=== PATIENT | female | born 1975 | race Caucasian/White ===

== ENCOUNTER 2024-08-28 08:28 | Outpatient (CLI) | payer BC, SELFPAY ==
[2024-08-28 08:56] LABS: Hematocrit 40.1 % (37.0-47.0); Hemoglobin 13.8 g/dL (12.0-15.0)
== END 2024-08-28 08:29 | disposition home or self-care (01) ==
LOC: ANHLAB 08:30
PROVIDERS: Visit Provider Anesthesiology
DX: Z01.818 Encounter for other preprocedural examination (principal); K42.9 Umbilical hernia without obstruction or gangrene; Z41.1 Encounter for cosmetic surgery
CPT/HCPCS: 36415; 85014; 85018; 93005

== ENCOUNTER 2024-08-31 00:54 | Day surgery (SDC) | payer OTHER, BC, SELFPAY ==
[2024-08-23 11:44] VITALS: BMI 25.5
--- NOTE | 2024-08-23 11:51 | PC.NURSE ---
Report to the Outpatient Waiting Room, entrance under the green pavilion located off [facility], at time _0630_ on date _[id number]_. Planned Procedure Time: _0830_.? Time changes happen often and if your time is changed the preop area will call you the afternoon before. - You and your visitor will be asked to self-screen and do not enter if you have any COVID symptoms. Please call surgeon if you need to reschedule. - A mask is optional within the hospital at this time. Patients may have clear liquids (water, carbonated beverages, clear teas, apple juice) until 3 hours prior to surgery with a maximum of 20 ounces. - No food from midnight until time of surgery and no smoking, or chewing tobacco (or any form of nicotine). No chewing gum, candy or mints. Take only the following medications with a SIP of water on the morning of surgery: ___None____ DO NOT STOP ANY OF YOUR OTHER PRESCRIPTION MEDICATIONS PRIOR TO SURGERY EXCEPT THE FOLLOWING Hold all vitamins and supplements for 3 days per anesthesiologist. Medications to discontinue per physician Date to take last dose Please no make-up, nail ugandan, hairspray, perfume, deodorant, or body powder the day of surgery.? No jewelry (including any body piercings) or valuables the day of surgery, leave them at home.? Please take a shower or bath the night before, or the morning of, surgery with an antibacterial soap.? Wear comfortable, loose fitting clothing. - Jewelry must be removed prior to entering the operating room.? Rings and piercings that are not removed may be cut off. - The hospital will not accept responsibility for valuables.? - Please leave all valuables, including medications, at home the day of surgery. If you are going home after surgery, a licensed maintenance truck driver must drive you home.? - NO public transportation without another adult if you receive anesthesia. - We recommend that an adult stay with you for 24 hours following discharge. - We also recommend that you do not drive, make important decision, drink alcoholic beverages, or take any drugs that were not prescribed by your health care provider for at least 24 hours after your discharge time. Follow any additional instructions given to you from your surgeon. Telephone instructions given to _Renu__and asked if any additional questions and then verbalized understanding. Patient advised to call surgeon office or pre surgery nurse liaison [phone] if any additional questions.
[2024-08-31] VITALS (14 sets, daily range): BP systolic 98–124; BP diastolic 67–88; PULSE 75–96; RESP 12–21; TEMP 36.4–37.1; O2SAT 96–100; BMI 26.4
[2024-08-31 06:41] LABS: Urine Cotinine NEGATIVE
--- NOTE | 2024-08-31 06:56 | WPDHPUPDATE1 ---
History and Physical Update Update Date/Time: 08/31/24 06:56 History and Physical has been reviewed, including an updated exam of the patient. There are NO changes in the patient's condition. Risks, benefits, and alternatives have been discussed and questions answered. Patient agrees to proceed with procedure.
--- NOTE | 2024-08-31 06:57 | W.PM.PROC2 ---
Procedure Note - Detailed Date of Procedure 08/31/24 Pre-op Diagnosis skin laxity, umbilical hernia Post-op Diagnosis Same Procedure Performed Progressive tension abdominoplasty with suction lipectomy Surgeon Carlito Kemp MD Anesthesia General Findings Tissue removed: 924 grams Lipoaspirate: 2,000 cc Description of Procedure They are here today for the above procedures. Previously and again today the risks, benefits, alternatives were discussed in extensive detail. I wanted them to be very realistic about the risks involved as well as expectations. We discussed aftercare and what to monitor for. I was very upfront about the risks of wound breakdown leading to loss of skin, open wounds, and need for additional procedures with permanent abdominal deformity. We discussed DVT/PE risks and management. Made sure answered all of their questions to their satisfaction today and consent was obtained. They were marked in the preoperative holding area with their verification. The patient was taken to the operating room. Anesthesia was provided by anesthesiology. A Tracy catheter was started. Posterior Placed prone on the operating room table with care taken to protect from injury. Prepped and draped in a standard sterile fashion. A surgical time-out was taken. Stab incisions were made and tumescent solution was infiltrated. Once adequate time was allowed for hemostasis a 5mm basket and 4mm vijay cannula were utilized to complete suction lipectomy based on S.A.F.E. technique in multiple planes and passes. Suction lipectomy continued to result based on pre-operative planning, intra-operative observation, and rolling pinch test which were in full agreement. Anterior Patient was then placed supine with care taken to protect from injury. I placed the patient in a flexed position to verify the upper and lower markings would reach. I then placed supine. A thorough abdominal examination was completed. Stab incisions were made and tumescent solution infiltrated. Stab incisions were made and tumescent solution was infiltrated. Once adequate time was allowed for hemostasis a 5mm basket and 4mm vijay cannula were utilized to complete suction lipectomy based on S.A.F.E. technique in multiple planes and passes. Suction lipectomy continued to result based on pre-operative planning, intra-operative observation, and rolling pinch test which were in full agreement. A 10 blade was used to make the upper incision. I continued dissection down to the level of fascia. Elevated just what was necessary for repair of the diastasis. I then again flexed the bed to verify the upper skin flap would reach the lower markings without tension. Once verified I placed her supine once again and a 10 blade used to make the lower incision. I elevated up to level the umbilicus and left the umbilicus intact on a well-vascularized stalk. The intervening tissue was removed. Dr. Bradshaw entered at this point to complete the umbilical hernia repair. See his note for details. A 2 mm blunt cannula with 0.5% bupivacaine was injected deep to the fascia bilaterally. DIASTASIS I plicated the diastasis recti using 0 PDO Stratafix barbed suture. This was in 2 separate layers using 2 separate sutures as well. OBLIQUE REPAIR I also repaired lateral to the rectus using two layers of 0 PDO Stratafix. TRANSVERSE FASCIA REPAIR After the patient was flexed (below) plicated the fascia with 0 PDO Stratafix in two separate layers. The patient was flexed and starting from superior to inferior began plication using 2-0 Vicryl to obliterate all space in a standard progressive tension fashion. At the umbilicus I marked out the location of the skin and inset this with 3-0 Monocryl and 4-0 Vicryl. I continued the remainder of the plication using 2-0 Vicryl until I reached my lower planned scar line. I trimmed any excess skin of the upper flap making sure this was a tension-free closure. 15 Jamie drain was placed. I then approximated using a 3 point suture with 2-0 Vicryl followed by 2-0 PDO Stratafix, 3-0 Stratafix ,running subcuticular 4-0 Monocryl, and tissue glue. Fluffs and an abdominal binder were placed. The patient was transferred to the bed in a flexed position. Awoken and taken to the PACU without difficulty. All instrument and sponge counts were correct at the end of the case. Estimated Blood Loss 50 Drains Yes (15 Jamie) Packing No Pathology None sent Complications No immediate complications Condition Stable Disposition PACU
[2024-08-31] MEDS: ACETAMINOPHEN 500 MG TABLET 1000 MG PO (07:00)
--- NOTE | 2024-08-31 07:16 | WPDANESEPPF ---
Anes - Initial Pre Proc Eval Procedure: Operation Date: 08/31/24 08:30 Proposed Procedures p Abdominoplasty with Liposuction - Carlito Kemp MD s Open Umbilical Hernia Repair Without Mesh - Yuri Bradshaw MD Date/Time: 08/31/24 07:16 Surgeon: Carlito Kemp MD Pre Op Diagnosis: skin laxity, umbilical hernia Patient Data Age: 49 Gender: F Height: 1.68 m Weight: 71.8 kg Allergies Allergy/AdvReac Type Severity Reaction Status Date / Time No Known Allergies Allergy Verified 08/23/24 11:44 Home Medications ?Medication ?Instructions ?Recorded ?Confirmed ?Type No Home Medications 05/12/24 08/23/24 History Laboratory Tests 08/31/24 06:15 Cotinine Negative Patient hx anesthesia problems: none Family hx anesthesia problems: none Results Review: All pre-operative results and documents have been reviewed as part of the pre-operative evaluation. [facility] Surgical History Surgical History (Updated 08/31/24 @ 07:17 by Adrián Dwyer MD) S/P breast lumpectomy Family History Family History Father Cancer Social History Social History Smoking status: Never smoker Alcohol intake: current Do You Feel Safe in your Home?: Yes Lack of Transportation: No Lack of Food: Never True Current Housing: I Have Housing Concerned About Future Housing: No Difficulty Paying Gas/Electric Bills: No Difficulty Paying for Meds: No Currently Unemployed: No Education: High School Diploma/GED Difficulty w/ Childcare or Family Care: No Living arrangements: with family Spiritual care concerns: No Anes - Eval Final PreProcedure Day of Procedure 08/31/24 07:16 Patient weight: normal Heart: regular rate and rhythm Lungs: clear to auscultation Airway: Mallampati scale class II Neurological: alert and oriented Last oral intake: >/= 8 hours ASA classification: II Emergent: no Anesthetic plan: proceed Anesthesia type and monitoring: general ETT and standard monitoring Results Review: All pre-operative results and documents have been reviewed as part of the pre-operative evaluation. Informed Consent: The patient's anesthetic plan and its attendant risks and benefits were discussed with the patient/family/POA. Questions were solicited and answers provided to the satisfaction of the patient/family/POA.
[2024-08-31] MEDS: KETOROLAC 15 MG/ML VIAL (*BKC) IV PUSH (07:20)
[2024-08-31] MEDS: TRANEXAMIC ACID 1,000MG/ISO100 1,000 MG/100 ML BAG 200 MG IVPB (07:30)
[2024-08-31] MEDS: SCOPOLAMINE 1 MG PATCH 1 PATCH TRANSDERM (08:09)
[2024-08-31] MEDS: LACTATED RINGERS 1,000 ML 30 ML IV CONT ×3 (08:09→13:49)
[2024-08-31 08:17] LABS: BEDSIDEPREGUCG Negative (Negative)
--- NOTE | 2024-08-31 08:27 | PM.IMHP ---
H&P: HPI History of Present Illness Date/Time: 08/31/24 08:27 Chief Complaint: Umbilical hernia Narrative: Renu is a 49 y/o female who presents to the office today at the request of Carlito Kemp MD for an evaluation of an abdominal bulge. Patient had consultation with Dr. Kemp for an abdominoplasty, which is scheduled for 08/31/24, when an umbilical hernia was noted. Patient would like to coordinate this repair with her abdominoplasty. She reports mild discomfort with activity. Patient tolerates a normal diet and has regular BM's. Review of Systems Review of Systems: The remainder of the review of systems to include constitutional, HEENT, cardiovascular, respiratory, GI, , integumentary, musculoskeletal, endocrine, immunologic, hematologic, psychiatric, and neurologic are all negative except for which is mentioned above in the HPI. [facility] Surgical History Surgical History S/P breast lumpectomy Family History Family History Father Cancer Social History Social History Smoking status: Never smoker Alcohol intake: current Do You Feel Safe in your Home?: Yes Lack of Transportation: No Lack of Food: Never True Current Housing: I Have Housing Concerned About Future Housing: No Difficulty Paying Gas/Electric Bills: No Difficulty Paying for Meds: No Currently Unemployed: No Education: High School Diploma/GED Difficulty w/ Childcare or Family Care: No Living arrangements: with family Spiritual care concerns: No Meds Home Medications and Allergies Home Medications ?Medication ?Instructions ?Recorded ?Confirmed ?Type No Home Medications 05/12/24 08/23/24 History Allergies Allergy/AdvReac Type Severity Reaction Status Date / Time No Known Allergies Allergy Verified 08/31/24 07:59 Vital Signs Vital Signs - 24 hr 08/31/24 08:11 Temperature 36.4 C Pulse Rate 76 Blood Pressure 114/87 Pulse Oximetry 100 Oxygen Delivery Room Air Exam Const: General: comfortable and no acute distress HENMT: Ears: TM's normal bilaterally Face/Nose/Sinus: Normal nares present Mouth: Yes moist mucous membranes Eyes: General: appearance normal, both eyes and all related structures Sclera: sclerae normal Pupils: Equal, round and reactive pupils present Neck: Neck: supple and no JVD Resp: Effort & Inspection: normal respiratory effort Auscultation: clear to auscultation bilaterally Cardio: Rate: regular rate Rhythm: regular rhythm GI: Other: 1cm defect, umbilical hernia. Reducible, no significant diastasis. Skin: General skin exam: normal color Neuro: General: gait normal Speech: normal speech Extrem: General: normal to inspection Psych: Mental Status: mental status grossly normal Affect: normal affect Assessment and Plan Assessment and plan (1) Umbilical hernia: Code(s): K42.9 - Umbilical hernia without obstruction or gangrene Status: Acute Assessment and Plan: I have reviewed office notes from Carlito Kemp MD prior to patient visit. Based on clinical exam, I have recommended an open umbilical hernia repair, no mesh.. This surgery will be coordinated with patient abdominoplasty. The procedure was discussed in detail including the use of mesh, general description, and usual course of recovery. Risks of recurrence, infection, postop bleeding, prolonged postop pain, possible need to return to surgery were discussed as well. All questions were answered. Patient would like to proceed. Follow-up 2 weeks postoperatively.
--- NOTE | 2024-08-31 08:29 | WPDHPUPDATE1 ---
History and Physical Update Update Date/Time: 08/31/24 08:29 History and Physical has been reviewed, including an updated exam of the patient. There are NO changes in the patient's condition. Risks, benefits, and alternatives have been discussed and questions answered. Patient agrees to proceed with procedure.
[2024-08-31] MEDS: ceFAZolin 2 GM/D5W 50 ML 2 GM/50 ML BAG IVPB (09:13)
[2024-08-31] MEDS: LACTATED RINGERS IRRIG 1,000 ML, LIDOCAINE 1% LOCAL INJ 50 ML, EPINEPHrine HCL INJ 1 MG... INFILTRATE (09:50)
--- NOTE | 2024-08-31 13:55 | W.PM.PROC2 ---
Procedure Note - Detailed Date of Procedure 08/31/24 Pre-op Diagnosis skin laxity, umbilical hernia Post-op Diagnosis Same Procedure Performed Open reducible umbilical hernia repair without mesh Surgeon Yuri Bradshaw MD Information Technology Specialist Iva HOLDER Anesthesia General Indications Patient is a [age]-year-old female who has a small reducible umbilical hernia. She is to undergo abdominal plasty procedure by Dr. Kemp and so she needs to have umbilical hernia repaired primarily at the same time as the abdominal plasty. Findings The patient had a 1.5cm defect at the base of the umbilicus. The contents of the hernia were reducible. The hernia was repaired primarily placed a 5 separate 0 Ethibond sutures placed to primarily approximate the edges of the fascia which was done without tension. No mesh was used. Description of Procedure After informed consent was obtained patient was taken to the operating and placed under general endotracheal anesthesia. Dr. Kemp then started and performed his part of the procedure to expose the anterior abdominal wall and the area of the hernia. He left the umbilicus attached out the stalk to the hernia sac. I then entered the room when Dr. Kemp was ready for me and I scrubbed into the procedure. The patient was stable under general endotracheal anesthesia. Another time-out was then performed. Patient was already on perioperative IV antibiotics. Just on the superior side of the umbilical stalk I palpated a 1.5cm defect in the fascia. I then incised the hernia sac just at the base of the umbilicus with electrocautery to expose the edges of the fascia. Small amount of omentum which was adherent to the hernia sac was then divided with electrocautery. I was then able to place my finger inside the abdomen through this defect. There were no other adhesions around the defect for a couple of centimeters. I then proceeded to place 5 separate 0 Ethibond sutures to approximate the edges of the fascia. Good 1cm bites of fascia on each side of the defect were obtained. The defect was closed without any tension on the closure. No mesh was used. I then left the patient on the operating table in stable condition awaiting Dr. Kemp to scrub back in and complete the abdominal plasty. The patient tolerated the procedure well no complications. Estimated blood loss during the hernia repair portion of the procedure was 2cc. Patient was left in the operating room under general trach anesthesia stable for Dr. Kemp. Implants None Estimated Blood Loss 2 Drains No Packing No Pathology None sent Complications No immediate complications Condition Stable Disposition PACU [facility] Billing Surgery - Charge Forward: Surgery Billing
[2024-08-31] MEDS: fentaNYL CITRATE INJ (*CRX) 100 MCG/2 ML VIAL 25 MCG IV PUSH ×4 (14:49→14:56)
[2024-08-31] MEDS: ONDANSETRON INJ 4 MG/2 ML VIAL IV PUSH (15:10)
[2024-08-31] MEDS: oxyCODONE HCL (*CRX) 5 MG TAB IR PO (16:23)
--- NOTE | 2024-08-31 16:56 | SUR.PHASEII ---
1650 Pt ready for DC, IV discontinued and getting dressed.
== END 2024-08-31 17:05 | disposition home or self-care (01) ==
PROVIDERS: Surgery; Visit Provider Surgery Plastic and Reconstructive Surgery
PROC: (CPT 15830; principal; 2024-08-31 08:30)
PROC: (CPT 49591; 2024-08-31 08:30)
DX: Z41.1 Encounter for cosmetic surgery (principal); L57.4 Cutis laxa senilis; K42.9 Umbilical hernia without obstruction or gangrene; Z98.890 Other specified postprocedural states; Z80.9 Family history of malignant neoplasm, unspecified
CPT/HCPCS: 15830; 15847; 15877; 49591; 80307; A9270; J0171; J0690; J1100; J1171; J1885; J2003; J2004; J2250; J2405; J2704; J3010; J7120